=== PATIENT | female | born 1985 | race Hispanic/Latino ===

== ENCOUNTER 2018-11-12 11:54 | Emergency (ER) | payer MEDICAID, OTHER ==
[2018-11-12 12:52] LABS: APPEARANCE,URINE Clear (CLEAR); BILIRUBIN,URINE Negative (NEGATIVE); COLOR,URINE Yellow (YELLOW); GLUCOSE, URINE (UA) Negative (NEGATIVE); KETONES,URINE 40 mg/dL (NEGATIVE); LEUKOCYTE ESTERASE ,URINE Small (NEGATIVE); NITRATE,URINE Negative (NEGATIVE); OCCULT BLOOD,URINE Negative (NEGATIVE); PH,URINE 5.5 (5.0-8.0); PROTEIN,URINE Trace mg/dL (NEGATIVE)
[2018-11-12 12:53] LABS: HCG,QUAL RESULT NEGATIVE (NEGATIVE)
[2018-11-12 13:26] LABS: BASOPHILS % (AUTO) 0.3 % (0.0-5.0); EOSINOPHILS % (AUTO) 0.8 % (0.0-8.0); HEMATOCRIT 44.8 % (36-48); LYMPHOCYTES % (AUTO) 13.6 % (21.0-51.0); MEAN CORPUSCULAR HEMOGLOBIN 30.5 pg (27.0-33.0); MEAN CORPUSCULAR HGB CONC 34.1 g/dL (32.0-36.0); MEAN CORPUSCULAR VOLUME 89.3 fL (79-99); MONOCYTES % (AUTO) 4.6 % (3.0-13.0); NEUTROPHILS % (AUTO) 80.7 % (40.0-77.0); NUCLEATED RED BLOOD CELLS 0.1 % (0.0-0.19); PLATELET COUNT (AUTO) 320 K/uL (130-400); RED BLOOD CELL COUNT(AUTO) 5.01 MIL/uL (4.00-5.50); RED CELL DISTRIBUTION WIDTH 13.5 % (11.0-15.5)
[2018-11-12 13:30] LABS: CREATININE 0.6 mg/dL (0.5-1.5); POTASSIUM 3.4 mmol/L (3.5-5.1)
[2018-11-12 13:31] LABS: RBC,URINE 0-1 /HPF (0-1)
[2018-11-12 13:32] LABS: BACTERIA,URINE Few /HPF (None Seen); MUCUS,URINE Moderate LPF (None Seen); SQUAMOUS EPITHELIAL CELL,UR Many /HPF (0-2)
[2018-11-12] MEDS ORDERED: HYOSCYAMINE SULFATE 0.125 MG TAB.SUBL SL ONE (14:36)
== END 2018-11-12 15:45 | disposition home or self-care (01) ==
LOC: EDH 11:54
DX: N39.0 Urinary tract infection, site not specified (principal); K52.89 Other specified noninfective gastroenteritis and colitis; R10.9 Unspecified abdominal pain
CPT/HCPCS: 36415; 74176; 80048; 81001; 81025; 85025; 86677; 96372

== ENCOUNTER 2020-08-09 11:59 | Inpatient (IN) | payer MEDICAID, OTHER ==
[~2020-08-09] VITALS: Ht 152.4 cm; Wt 87.5 kg
[2020-08-09] MEDS ORDERED: ACETAMINOPHEN 325 MG TAB ONE (12:28)
[2020-08-09] MEDS ORDERED: CEFTRIAXONE 1G VIAL ONE (12:28)
[2020-08-09 12:42] LABS: APPEARANCE,URINE SL CLOUDY (CLEAR); BILIRUBIN,URINE SMALL (NEGATIVE); COLOR,URINE ORANGE (YELLOW); GLUCOSE, URINE (UA) 250 mg/dL (NEGATIVE); KETONES,URINE >=80 mg/dL (NEGATIVE); LEUKOCYTE ESTERASE ,URINE MODERATE (NEGATIVE); NITRATE,URINE POSITIVE (NEGATIVE); OCCULT BLOOD,URINE TRACE-INTACT (NEGATIVE); PH,URINE 6.5 (5.0-8.0); PROTEIN,URINE >=300 mg/dL (NEGATIVE); UROBILINOGEN,URINE >=8.0 mg/dL (0.2-1.0)
[2020-08-09 12:43] LABS: HCG,QUAL RESULT NEGATIVE (NEGATIVE)
[2020-08-09 12:47] LABS: BASOPHILS % (AUTO) 0.3 % (0.0-5.0); EOSINOPHILS % (AUTO) 0.1 % (0.0-8.0); HEMATOCRIT 43.5 % (36-48); LYMPHOCYTES % (AUTO) 4.4 % (21.0-51.0); MEAN CORPUSCULAR HEMOGLOBIN 29.8 pg (27.0-33.0); MEAN CORPUSCULAR HGB CONC 33.3 g/dL (32.0-36.0); MEAN CORPUSCULAR VOLUME 89.3 fL (79-99); MONOCYTES % (AUTO) 4.1 % (3.0-13.0); NEUTROPHILS % (AUTO) 90.6 % (40.0-77.0); PLATELET COUNT (AUTO) 315 K/uL (130-400); RED BLOOD CELL COUNT(AUTO) 4.87 MIL/uL (4.00-5.50); RED CELL DISTRIBUTION WIDTH 12.6 % (11.0-15.5); WHITE BLOOD COUNT (AUTO) 26.1 K/uL (4.8-10.8)
[2020-08-09 12:52] LABS: ALBUMIN 3.5 g/dL (3.5-5.0); BILIRUBIN,TOTAL 0.9 mg/dL (0.2-1.0); TOTAL PROTEIN, SERUM 8.8 g/dL (6.0-8.3)
[2020-08-09 12:57] LABS: POTASSIUM 2.8 mmol/L (3.5-5.1)
[2020-08-09 12:58] LABS: BACTERIA,URINE Many /HPF (None Seen); MUCUS,URINE Few LPF (None Seen); SQUAMOUS EPITHELIAL CELL,UR Moderate /HPF (0-2)
[2020-08-09] MEDS ORDERED: POTASSIUM BICARB/CIT AC 25 MEQ TABLET.EFF ONE (14:37)
[2020-08-09] MEDS ORDERED: 0.9%NACL 1000ML 2,000 ML IV ONE (14:37)
[2020-08-09] MEDS: ZOSYN 3.375GM+NS 50ML 50 ML IV SCH (17:45)
[2020-08-09] MEDS ORDERED: POTASSIUM CHLORIDE 20MEQ/100ML 100 ML IV PRN (18:00)
[2020-08-09] MEDS ORDERED: POTASSIUM CHLORIDE 10% ELIXIR 20 MEQ/15 ML UDCUP PO PRN (18:00)
[2020-08-09] MEDS ORDERED: MAGNESIUM 2GM PREMIX 50ML 50 ML IV PRN (18:00)
[2020-08-09] MEDS ORDERED: LIDOCAINE HCL-MPF 1% 2ML VIAL IJ PRN (18:00)
[2020-08-09] MEDS ORDERED: ZOSYN 3.375GM+NS 50ML 50 ML IV ONE (18:12)
[2020-08-09] MEDS ORDERED: KETOROLAC 15MG/ML VIAL (15MG/ML) ONE (18:48)
[2020-08-09] MEDS ORDERED: KCL 20 MEQ ERTAB PO ONE (20:53)
[2020-08-09] MEDS ORDERED: PHENAZOPYRIDINE HCL 200 MG TABLET ONE (20:54)
[2020-08-09] MEDS: PHENAZOPYRIDINE HCL 200 MG TABLET PO SCH (21:00)
[2020-08-09] MEDS ORDERED: ONDANSETRON 4MG INJ ONE (23:04)
[2020-08-09 23:15] VITALS: BP 97/69
[2020-08-09] MEDS: KETOROLAC 15MG/ML VIAL (15MG/ML) IV PRN (23:29)
[2020-08-09] MEDS: CEFTRIAXONE 1G VIAL IVP SCH (23:29)
[2020-08-10] VITALS (7 sets, daily range): BP systolic 85–114; BP diastolic 53–57
[2020-08-10] MEDS: ZOSYN 3.375GM+NS 50ML 50 ML IV SCH ×3 (01:42→17:51)
[2020-08-10] MEDS ORDERED: ONDANSETRON 4MG INJ IVP PRN (04:00)
[2020-08-10] MEDS: KETOROLAC 15MG/ML VIAL (15MG/ML) IV PRN ×2 (04:48→13:33)
[2020-08-10 05:35] LABS: MEAN CORPUSCULAR HEMOGLOBIN 29.7 pg (27.0-33.0); MEAN CORPUSCULAR HGB CONC 32.8 g/dL (32.0-36.0); MEAN CORPUSCULAR VOLUME 90.7 fL (79-99); RED BLOOD CELL COUNT(AUTO) 3.97 MIL/uL (4.00-5.50); RED CELL DISTRIBUTION WIDTH 12.9 % (11.0-15.5); WHITE BLOOD COUNT (AUTO) 23.4 K/uL (4.8-10.8)
[2020-08-10 05:52] LABS: ALBUMIN 2.4 g/dL (3.5-5.0); BILIRUBIN,TOTAL 0.4 mg/dL (0.2-1.0); CREATININE 0.8 mg/dL (0.5-1.5); MAGNESIUM 1.7 mg/dL (1.80-2.40); POTASSIUM 3.3 mmol/L (3.5-5.1); TOTAL PROTEIN, SERUM 6.5 g/dL (6.0-8.3)
[2020-08-10 06:19] LABS: HEMOGLOBIN A1C 5.6 % (4.0-6.0)
[2020-08-10] MEDS: LACTATED RINGERS 1000ML 1,000 ML IV SCH ×2 (09:00→11:08)
[2020-08-10] MEDS: PHENAZOPYRIDINE HCL 200 MG TABLET PO SCH ×2 (09:03→20:54)
[2020-08-10] MEDS: CEFTRIAXONE 1G VIAL IVP SCH ×2 (11:07→21:52)
[2020-08-10] MEDS ORDERED: ACETAMINOPHEN 325 MG TAB PO PRN (18:30)
[2020-08-10] MEDS ORDERED: 0.9% NACL 500ML IV.SOLN 500 ML IV SCH (20:00)
[2020-08-10] MEDS: KCL 20 MEQ ERTAB PO PRN (20:54)
[2020-08-11] MEDS: KCL 20 MEQ ERTAB PO PRN ×3 (01:06→09:13)
[2020-08-11] MEDS: ZOSYN 3.375GM+NS 50ML 50 ML IV SCH ×3 (01:06→17:43)
[2020-08-11 04:00] VITALS: BP 95/61
[2020-08-11] MEDS: LACTATED RINGERS 1000ML 1,000 ML IV SCH (04:27)
[2020-08-11 04:42] LABS: HEMATOCRIT 34.1 % (36-48); MEAN CORPUSCULAR HEMOGLOBIN 29.2 pg (27.0-33.0); MEAN CORPUSCULAR HGB CONC 32.6 g/dL (32.0-36.0); MEAN CORPUSCULAR VOLUME 89.7 fL (79-99); RED BLOOD CELL COUNT(AUTO) 3.8 MIL/uL (4.00-5.50); RED CELL DISTRIBUTION WIDTH 13.1 % (11.0-15.5); WHITE BLOOD COUNT (AUTO) 14.1 K/uL (4.8-10.8)
[2020-08-11 05:14] LABS: ALBUMIN 2.2 g/dL (3.5-5.0); BILIRUBIN,TOTAL 0.3 mg/dL (0.2-1.0); CREATININE 0.8 mg/dL (0.5-1.5); POTASSIUM 3.2 mmol/L (3.5-5.1); TOTAL PROTEIN, SERUM 6.2 g/dL (6.0-8.3)
[2020-08-11 08:00] VITALS: BP 98/64
[2020-08-11] MEDS: PHENAZOPYRIDINE HCL 200 MG TABLET PO SCH ×2 (09:13→21:35)
[2020-08-11] MEDS: CEFTRIAXONE 1G VIAL IVP SCH (11:42)
[2020-08-11 12:00] VITALS: BP 96/60
[2020-08-11 16:00] VITALS: BP 103/71
[2020-08-11 19:44] VITALS: BP 93/58
[2020-08-12] VITALS: BP 106/66
[2020-08-12] MEDS: ZOSYN 3.375GM+NS 50ML 50 ML IV SCH ×2 (01:25→09:16)
[2020-08-12] MEDS: LACTATED RINGERS 1000ML 1,000 ML IV SCH (01:26)
[2020-08-12 04:00] VITALS: BP 94/62
[2020-08-12 06:08] LABS: HEMATOCRIT 35.4 % (36-48); MEAN CORPUSCULAR HEMOGLOBIN 29.2 pg (27.0-33.0); MEAN CORPUSCULAR HGB CONC 32.2 g/dL (32.0-36.0); MEAN CORPUSCULAR VOLUME 90.5 fL (79-99); RED BLOOD CELL COUNT(AUTO) 3.91 MIL/uL (4.00-5.50); RED CELL DISTRIBUTION WIDTH 13.3 % (11.0-15.5)
[2020-08-12 06:37] LABS: ALBUMIN 2.3 g/dL (3.5-5.0); BILIRUBIN,TOTAL 0.3 mg/dL (0.2-1.0); CREATININE 0.7 mg/dL (0.5-1.5); POTASSIUM 3.9 mmol/L (3.5-5.1); TOTAL PROTEIN, SERUM 6.7 g/dL (6.0-8.3)
[2020-08-12 08:00] VITALS: BP 103/66
[2020-08-12] MEDS: PHENAZOPYRIDINE HCL 200 MG TABLET PO SCH (09:16)
[2020-08-12 11:42] VITALS: BP 92/60
== END 2020-08-12 16:45 | disposition home or self-care (01) | DRG 872 ==
LOC: EDH 11:59 → EDHIP 12:00 → 3AH 22:13
PROVIDERS: ADMIT Hospitalist; ATTEND Hospitalist
DX: A41.89 Other specified sepsis (principal); N39.0 Urinary tract infection, site not specified; E66.9 Obesity, unspecified; R53.81 Other malaise; Z68.37 Body mass index [BMI] 37.0-37.9, adult; Z90.49 Acquired absence of other specified parts of digestive tract
CPT/HCPCS: 36415; 74176; 80053; 80061; 81001; 81025; 83036; 83605; 83735; 84145; 85025; 85027; 87040; 87077; 87088; 87186; G0378; J0696; J1885; J2405; J2543; J3475; J7030; J7040; J7120

== ENCOUNTER 2020-09-03 15:21 | Emergency (ER) | payer OTHER ==
[2020-09-03] MEDS ORDERED: DICYCLOMINE HCL 10 MG/ML 2ML AMP IM ONE (15:52)
[2020-09-03] MEDS ORDERED: MAG HYDROX/AL HYDROX/SIMETH ES 30 ML SUSP UDCUP ONE (15:52)
[2020-09-03] MEDS ORDERED: LIDOCAINE HCL 2% VISCOUS 15 ML UDCUP ONE (15:52)
[2020-09-03] MEDS ORDERED: ONDANSETRON HCL 4 MG/2 ML VIAL ONE (15:52)
[2020-09-03] MEDS ORDERED: FAMOTIDINE/PF 20 MG/2 ML VIAL IV ONE (15:52)
[2020-09-03 16:00] LABS: BASOPHILS % (AUTO) 0.3 % (0.0-5.0); EOSINOPHILS % (AUTO) 0.1 % (0.0-8.0); HEMATOCRIT 41.2 % (36-48); LYMPHOCYTES % (AUTO) 11.1 % (21.0-51.0); MEAN CORPUSCULAR HEMOGLOBIN 29.9 pg (27.0-33.0); MEAN CORPUSCULAR HGB CONC 34.5 g/dL (32.0-36.0); MEAN CORPUSCULAR VOLUME 86.7 fL (79-99); MONOCYTES % (AUTO) 7.7 % (3.0-13.0); NEUTROPHILS % (AUTO) 80.4 % (40.0-77.0); PLATELET COUNT (AUTO) 269 K/uL (130-400); RED BLOOD CELL COUNT(AUTO) 4.75 MIL/uL (4.00-5.50); RED CELL DISTRIBUTION WIDTH 12.9 % (11.0-15.5); WHITE BLOOD COUNT (AUTO) 18.2 K/uL (4.8-10.8)
[2020-09-03 16:03] LABS: APPEARANCE,URINE Cloudy (CLEAR); BILIRUBIN,URINE Small (NEGATIVE); COLOR,URINE Dark Yellow (YELLOW); GLUCOSE, URINE (UA) Negative (NEGATIVE); KETONES,URINE 15 mg/dL (NEGATIVE); LEUKOCYTE ESTERASE ,URINE Moderate (NEGATIVE); NITRATE,URINE Positive (NEGATIVE); OCCULT BLOOD,URINE Moderate (NEGATIVE); PH,URINE 6.5 (5.0-8.0); PROTEIN,URINE Trace mg/dL (NEGATIVE)
[2020-09-03 16:05] LABS: HCG,QUAL RESULT NEGATIVE (NEGATIVE)
[2020-09-03 16:16] LABS: INR 1.21 (0.85-1.15)
[2020-09-03 16:25] LABS: ALBUMIN 3.3 g/dL (3.5-5.0); BILIRUBIN,TOTAL 0.8 mg/dL (0.2-1.0); POTASSIUM 3.8 mmol/L (3.5-5.1); TOTAL PROTEIN, SERUM 8.4 g/dL (6.0-8.3)
[2020-09-03 16:25] LABS: BACTERIA,URINE Few /HPF (None Seen); MUCUS,URINE Moderate LPF (None Seen); SQUAMOUS EPITHELIAL CELL,UR Moderate /HPF (0-2)
[2020-09-03] MEDS ORDERED: IOHEXOL-350 75 ML VIAL IV ONE (16:36)
[2020-09-03] MEDS ORDERED: CEFTRIAXONE SODIUM 1 GM ONE (17:00)
[2020-09-03] MEDS ORDERED: PHENAZOPYRIDINE HCL 200 MG TABLET ONE (17:01)
[2020-09-03] MEDS ORDERED: SODIUM CHLORIDE 0.9% 50 ML IV ONE (17:02)
== END 2020-09-03 17:47 | disposition home or self-care (01) ==
LOC: EDH 15:21
DX: N10 Acute pyelonephritis (principal); Z90.49 Acquired absence of other specified parts of digestive tract
CPT/HCPCS: 36415; 74177; 80053; 81001; 81025; 82150; 83690; 85025; 85610; 85730; 87088; 96365; 96372; 96375; 99285; J0500; J0696; J2405; J3490; Q9967

== ENCOUNTER 2022-09-29 13:07 | Emergency (ER) | payer OTHER ==
[~2022-09-29] VITALS: Ht 154.9 cm; Wt 90.7 kg
[2022-09-29 13:08] VITALS: BP 115/79
[2022-09-29] MEDS ORDERED: CEPH500B PO (14:12)
== END 2022-09-29 14:38 | disposition home or self-care (01) ==
LOC: EDH 13:07
DX: N39.0 Urinary tract infection, site not specified (principal); Z90.49 Acquired absence of other specified parts of digestive tract